=== PATIENT | female | born 1995 | race Caucasian/White ===

== ENCOUNTER → 2025-03-17 | Outpatient (CLI) | payer BC, SELFPAY ==
[2025-03-17 10:59] LABS: Misc Send Out* See Sep Rpt
[2025-03-17 12:21] LABS: Calcium 9.2 mg/dL (8.3-10.6)
[2025-03-23 07:02] LABS: Aldosterone* 4 ng/dL; Renin Activity, Plasma* 0.62 ng/mL/h (0.25-5.82)
== END | disposition home or self-care (01) ==
PROVIDERS: PCP Internal Medicine; Referring Provider Internal Medicine; Visit Provider Internal Medicine
DX: I15.0 Renovascular hypertension (principal); I10 Essential (primary) hypertension
CPT/HCPCS: 36415; 82088; 82310; 84244